=== PATIENT | male | born 1995 | race Hispanic/Latino ===

== ENCOUNTER 2020-04-26 17:17 | Emergency (ER) | payer BC, OTHER ==
[2020-04-27 11:58] LABS: SARS-CoV-2 MS2 Positive; SARS-CoV-2 N Gene Negative; SARS-CoV-2 S Gene Negative; SARS-CoV-2 orf1ab Negative
== END 2020-04-26 17:57 | disposition home or self-care (01) ==
LOC: NAV ERS 17:17
DX: Z20.828 Contact with and (suspected) exposure to other viral communicable diseases (principal)
CPT/HCPCS: 87635; 99283; U0003

== ENCOUNTER 2020-06-27 13:44 | Emergency (ER) | payer BC, OTHER | END 2020-06-27 14:16 | disposition home or self-care (01) | LOC: NAV ERS 13:44 | DX: S00.83XA Contusion of other part of head, initial encounter (principal); W17.89XA Other fall from one level to another, initial encounter | CPT/HCPCS: 99283 ==